=== PATIENT | female | born 1960 | race Caucasian/White ===

== ENCOUNTER → 2021-05-31 12:01 | Outpatient (CLI) | payer BC, SELFPAY ==
--- NOTE | 2021-05-31 12:08 | DI.MRI.S_ITS ---
PROCEDURE: MR HIP LT WO CON INDICATIONS: LEFT LEG,HIP,KNEE PAIN TECHNIQUE: Noncontrast coronal T1 spin echo and STIR through the bony pelvis. Coronal and axial T2 fast spin echo with fat saturation, sagittal T1 spin echo, and oblique axial T2 fast spin echo with fat saturation through the hip. COMPARISON: None. FINDINGS: BONES AND JOINTS: Osseous structures: No fracture identified. Sacroiliac joints: Unremarkable in signal intensity. Lower lumbar spine: Diffuse spondylosis and facet arthropathy. artifact from lumbar spinal fixation hardware. Other: No evidence of osteonecrosis. TENDONS AND LIGAMENTS: Gluteus medius and minimus tendons: Mild gluteus medius and minimus insertional tendinopathy and low-grade thickening. There is mild adjacent soft tissue edema. No definite muscle atrophy. Proximal iliotibial band: Intact. Iliopsoas tendon: Intact. Origin of the hamstring tendon: Minimal hamstring origin tendinopathy, technically age indeterminate. Rectus femoris muscle origins: Intact Ligamentum teres: Intact where visualized. LABRUM: Labrum: Ill-defined fraying of the anterosuperior labrum. There is also a partial-thickness curvilinear T2 hyperintense sublabral focus which may be incidental sulcus given appearance of margins and partial-thickness involvement although technically indeterminate Alpha angle of the femur: Within normal limits at less than 55 degrees. SOFT TISSUES: Visualized muscles: Normal bulk and internal signal. Quadratus femoris muscle: Normal. Proximal sciatic neurovascular bundle: Normal adjacent to the hamstring tendons. Other: No pelvic free fluid. Bladder: Normal. Genitourinary structures and bowel loops: Normal where visualized. IMPRESSION: Mild hip abductor insertional tendinopathy and adjacent edema. Minimal hamstring origin tendinopathy, technically age indeterminate Anterosuperior labral tear which could be chronic/age-appropriate degeneration . There is [id number] adjacent chondral loss. In this area, curvilinear possible sublabral sulcus although technically indeterminate. Further evaluation with MR arthrography as clinically necessary could be considered. Dictated by: Jasson Cleary M.D. on 05/31/2021 at 13:26 Approved by: Jasson Cleary M.D. on 05/31/2021 at 13:33
--- NOTE | 2021-05-31 12:08 | DI.MRI.S_ITS ---
PROCEDURE: MR KNEE LT WO CON INDICATIONS: LEFT LEG,HIP,KNEE PAIN TECHNIQUE: Noncontrast sagittal PD fast spin echo and T2 fast spin echo with fat saturation, sagittal 3-D FLASH with fat saturation; coronal T1 spin echo and PD fast spin echo with fat saturation, and axial PD fast spin echo with fat saturation through the knee. COMPARISON: None. FINDINGS: Menisci: Medial meniscus: The Lateral meniscus: Intact. Cruciate ligaments: Anterior cruciate ligament: Intact. Posterior cruciate ligament: Intact. Medial structures: The medial collateral ligament: Intact. Semimembranosus tendon: Mild insertional tendinopathy and thickening. Visualized pes anserinus tendons: Intact. Bursal fluid: none. Lateral structures: The lateral collateral ligament demonstrates thickening and intrasubstance signal change in keeping with low grade sprain, statistically chronic, although technically age indeterminate. Biceps femoris tendon appears intact. Popliteus tendon grossly unremarkable. Iliotibial band appears intact. Anterior structures: Quadriceps tendon: Intact. Medial patellofemoral ligament: Intact. Lateral patellofemoral ligament: Mildly thickened appearance although no complete disruption. This could represent low-grade or chronic sprain Patellar tendon: Intact. Anterior soft tissues: Prepatellar and superficial infrapatellar subcutaneous edema/fluid. Deep infrapatellar region: Normal. Bones and cartilage: Marrow: No focal marrow contusion or discrete low signal fracture line. Medial compartment: No focal chondral defect. Lateral compartment: Diffuse partial-thickness loss of the femoral and tibial cartilage. Patellofemoral compartment: Diffuse partial-thickness loss of the patellar cartilage. The femoral trochlear cartilage appears grossly intact. Joint space: Effusion: No pathologic knee joint effusion. Popliteal fossa: No Larson's cyst. Loose bodies: None. IMPRESSION: Possible low-grade sprain of the lateral patellofemoral ligament at the patellar attachment. Mild joint degeneration involving the lateral and patellofemoral compartments as above. Dictated by: Jasson Cleary M.D. on 05/31/2021 at 14:08 Approved by: Jasson Cleary M.D. on 05/31/2021 at 14:14
--- NOTE | 2021-05-31 12:08 | DI.MRI.S_ITS ---
PROCEDURE: MR LUMBAR SPINE WO CON INDICATIONS: Left leg, hip, and knee pain TECHNIQUE: Noncontrast sagittal T1 spin echo and T2 fast echo, sagittal STIR, axial T1 and T2 fast spin echo through the lumbar spine. In cases with scoliosis, additional coronal T2 fast spin echo may be performed. COMPARISON: None. FINDINGS: Postsurgical changes of L3-S1 posterior fixation by means of bilateral rods and pedicle screws with interbody devices. No concerning marrow signal abnormality surrounding the hardware. No listhesis. Vertebral body heights maintained. No suspicious focal marrow signal abnormality or bone marrow edema. Normal position and appearance of the conus. T12-L1: No spinal canal or neural foraminal stenosis. L1-L2: Disc bulge flattens the ventral thecal sac. A protrusion in the right paracentral and foraminal zones mildly displaces the descending right L2 nerve roots and produces mild neural foraminal narrowing on the right. L2-L3: Diffuse disc bulge flattens the ventral thecal sac. Disc material displaces the descending right L3 nerve roots within the right subarticular zone. Numerous nerve roots are interposed between disc and facet material within the right subarticular zone (series 6, image 16). No neural foraminal stenosis. L3-L4: Disc bulge flattens and indents the ventral thecal sac with displacement of the descending bilateral L4 nerve roots. Numerous nerve roots are interposed between disc and facet material within the right subarticular zone (series 6, image 22). Foraminal components of the disc bulge and facet hypertrophy combine to produce mild bilateral neural foraminal stenosis. L4-L5: No spinal canal or subarticular zone stenosis. No neural foraminal narrowing on the right. Some residual disc material and posterior osteophytic ridging of the inferior L4 endplate combine with facet hypertrophy to produce mild neural foraminal narrowing on the right. L5-S1: No spinal canal or subarticular zone stenosis. Mild neural foraminal narrowing on the right due to facet hypertrophy and some posterior osteophytic ridging of the inferior L5 endplate IMPRESSION: Mild degenerative changes with no definite evidence of focal nerve root impingement. Dictated by: Lobito Tubbs M.D. on 05/31/2021 at 14:29 Approved by: Lobito Tubbs M.D. on 05/31/2021 at 14:32
== END ==
PROVIDERS: PCP Nurse Practitioner Family; Referring Provider Nurse Practitioner Family; Visit Provider Nurse Practitioner Family
DX: S73.192A Other sprain of left hip, initial encounter (principal); M25.552 Pain in left hip; M17.12 Unilateral primary osteoarthritis, left knee; M25.562 Pain in left knee; M47.816 Spondylosis without myelopathy or radiculopathy, lumbar region; M54.42 Lumbago with sciatica, left side; R29.898 Other symptoms and signs involving the musculoskeletal system; G89.29 Other chronic pain
CPT/HCPCS: 72148; 73721